=== PATIENT | female | born 1985 | race Caucasian/White ===

== ENCOUNTER 2021-05-28 12:41 | Outpatient (CLI) | payer MEDICAID ==
[2021-05-28] VITALS (21 sets, daily range): BP systolic 102–144; BP diastolic 49–116
== END 2021-05-28 23:59 | disposition home or self-care (01) ==
LOC: CARD DIAG 12:41
PROVIDERS: ATTEND Family Medicine
DX: R55 Syncope and collapse (principal)
CPT/HCPCS: 93660